=== PATIENT | male | born 1935 | race Caucasian/White ===

== ENCOUNTER 2016-10-27 17:59 | Inpatient (IN) | payer MEDICARE, OTHER ==
[~2016-10-27] VITALS: Ht 177.8 cm; Wt 72.5 kg
[2016-10-27 19:40] LABS: Albumin 3.3 g/dL (3.4-5.0); BUN/Creatinine Ratio 36.7; Calcium 8.6 mg/dL (8.5-10.1); Magnesium 2.6 mg/dL (1.6-2.6); Potassium 4.1 mmol/L (3.5-5.1)
[2016-10-27 19:43] LABS: Bilirubin, Total 1.5 mg/dL (0.2-1.0); Total Protein 6.4 g/dL (6.4-8.2)
[2016-10-27 19:54] LABS: Basophils # (auto) 0 uL; Basophils % (auto) 0.1 % (0.0-2.0); DEFINITIVE VIEW TRANSMISSION; Eosinophils # (auto) 0 uL; Eosinophils % (auto) 0.3 % (0.0-7.0); Hematocrit 48.4 % (41.0-53.0); Hemoglobin 15.8 g/dL (13.5-17.5); Lymphocytes # (auto) 0.8 uL; Lymphocytes % (auto) 6.2 % (10.0-50.0); Mean Corpuscular Hemoglobin 29.3 pg (28.0-32.0); Mean Corpuscular Hgb Conc. 32.6 g/dL (32.0-36.0); Mean Platelet Volume 8.1 fL (7.4-10.4); Monocytes # (auto) 2.4 uL; Monocytes % (auto) 17.9 % (0.0-12.0); Neutrophils # (auto) 10.3 uL; Neutrophils % (auto) 75.5 % (37.0-80.0); Platelet Count (auto) 505 10^3/uL (140-450); Red Cell Distribution Width 15.9 % (11.6-16.0); White Blood Cell 13.6 10^3/uL (4.4-10.8)
[2016-10-27] MEDS ORDERED: ALUM & MAG HYDROX-SIMETH LIQ(MAALOX) 30 ML PO ONE (22:15)
[2016-10-27] MEDS ORDERED: PIPERACILLIN-TAZOB 3.375GM 100 ML IV ONE ×2 (22:15→22:37)
[2016-10-27] MEDS ORDERED: LIDOCAINE VISCOUS 2% 15ML UD PO ONE (22:15)
[2016-10-27] MEDS ORDERED: DONNATAL 5ml ORAL Elix (BELLADONNA ALK-PHENOBARB) PO ONE (22:15)
[2016-10-27 22:25] LABS: Amylase 17 U/L (25-115)
[2016-10-28] VITALS (7 sets, daily range): BP systolic 128–180; BP diastolic 54–92
[2016-10-28] MEDS ORDERED: WARFARIN SODIUM 2 MG TAB PO ONE ×3 (00:45→06:15)
[2016-10-28] MEDS ORDERED: ONDANSETRON HCL 4 MG/2 ML VIAL IV PRN (00:45)
[2016-10-28] MEDS: SODIUM CHLORIDE 0.9% 1,000 ML IV SCH ×4 (02:30→21:43)
[2016-10-28] MEDS: PIPERACILLIN-TAZO 4.5GM 100 ML IV SCH ×3 (05:34→21:42)
[2016-10-28 06:36] LABS: Partial Thromboplastin Time 58.4 sec (22.64-33.71)
[2016-10-28 06:39] LABS: Prothrombin Time 68.1 sec (9.37-12.3)
[2016-10-28 06:41] LABS: INR 6.61 (0.9-1.15)
[2016-10-28 06:48] LABS: Albumin 2.7 g/dL (3.4-5.0); BUN/Creatinine Ratio 43.1; Bilirubin, Total 1.2 mg/dL (0.2-1.0); Calcium 8.2 mg/dL (8.5-10.1); Potassium 3.7 mmol/L (3.5-5.1); Total Protein 5.1 g/dL (6.4-8.2)
[2016-10-28] MEDS ORDERED: MEMA28CA OR (06:52)
[2016-10-28] MEDS ORDERED: WARF4TAB33 PO (06:52)
[2016-10-28] MEDS ORDERED: NEBI5TAB2 PO (06:52)
[2016-10-28] MEDS ORDERED: TEMA15CA PO (06:52)
[2016-10-28] MEDS: FAMOTIDINE 20 MG TAB PO SCH ×2 (09:37→21:43)
[2016-10-28] MEDS: MEMANTINE HCL 5 MG TAB PO SCH (09:37)
[2016-10-28] MEDS ORDERED: ENOXAPARIN SOD 30 MG/0.3 ML SYRINGE SC SCH (10:00)
[2016-10-28] MEDS ORDERED: BYSTOLIC 2.5 MG PO SCH (10:00)
[2016-10-28] MEDS ORDERED: ENOXAPARIN SOD 40 MG/0.4 ML SYRINGE SC SCH (10:00)
[2016-10-28] MEDS: LACTULOSE 20Gm/30ML SOLN PO PRN (12:01)
[2016-10-29 05:00] VITALS: BP 119/60
[2016-10-29 05:48] LABS: DEFINITIVE VIEW TRANSMISSION; Hematocrit 39.9 % (41.0-53.0); Hemoglobin 12.9 g/dL (13.5-17.5); Mean Corpuscular Hemoglobin 29.1 pg (28.0-32.0); Mean Corpuscular Hgb Conc. 32.4 g/dL (32.0-36.0); Mean Corpuscular Volume 89.9 fL (80.0-100.0); Mean Platelet Volume 8.1 fL (7.4-10.4); Platelet Count (auto) 275 10^3/uL (140-450); Red Cell Distribution Width 15.1 % (11.6-16.0); SUSPECT VIEW TRANSMISSION; White Blood Cell 8.3 10^3/uL (4.4-10.8)
[2016-10-29] MEDS: PIPERACILLIN-TAZO 4.5GM 100 ML IV SCH ×3 (06:02→21:18)
[2016-10-29 06:11] LABS: Partial Thromboplastin Time 63.4 sec (22.64-33.71)
[2016-10-29 06:26] LABS: Metamyelocytes % 0; Myelocytes % 0; Promyelocytes % 0; Reactive Lymphocytes 0
[2016-10-29 06:28] LABS: Albumin 2.4 g/dL (3.4-5.0); BUN/Creatinine Ratio 36.4; Bilirubin, Total 1.8 mg/dL (0.2-1.0); Calcium 8.2 mg/dL (8.5-10.1); Potassium 3.4 mmol/L (3.5-5.1); Total Protein 4.8 g/dL (6.4-8.2)
[2016-10-29 06:53] LABS: Prothrombin Time 47.6 sec (9.37-12.3)
[2016-10-29 06:56] LABS: INR 4.62 (0.9-1.15)
[2016-10-29] MEDS: SODIUM CHLORIDE 0.9% 1,000 ML IV SCH ×3 (08:43→23:00)
[2016-10-29 09:00] VITALS: BP 103/60
[2016-10-29] MEDS: FAMOTIDINE 20 MG TAB PO SCH ×2 (09:15→21:17)
[2016-10-29] MEDS: LACTULOSE 20Gm/30ML SOLN PO PRN (09:15)
[2016-10-29] MEDS: MEMANTINE HCL 5 MG TAB PO SCH (09:15)
[2016-10-29 09:21] LABS: Urine Bilirubin Negative (Negative); Urine Color Yellow (Yellow); Urine Glucose Normal (Normal); Urine Ketone Negative (Negative); Urine Mucus FEW (None Seen); Urine Nitrite Negative (Negative); Urine RBC 53 /hpf (0 - 3); Urine Urobilinogen Normal (Negative); Urine pH 5.5 (5.0-8.0)
[2016-10-29 09:42] LABS: Urine Blood 2+ /uL (Negative)
[2016-10-29 13:00] VITALS: BP 101/40
[2016-10-29 15:28] LABS: Platelet Estimate Adequate
[2016-10-29 17:00] VITALS: BP 110/65
[2016-10-29 21:33] VITALS: BP 122/75
[2016-10-30 04:50] VITALS: BP 103/62
[2016-10-30] MEDS: PIPERACILLIN-TAZO 4.5GM 100 ML IV SCH ×3 (06:09→22:00)
[2016-10-30 07:31] LABS: Partial Thromboplastin Time 49.8 sec (22.64-33.71)
[2016-10-30 07:32] LABS: Albumin 2.2 g/dL (3.4-5.0); BUN/Creatinine Ratio 25.9; Calcium 7.7 mg/dL (8.5-10.1); Potassium 3.7 mmol/L (3.5-5.1)
[2016-10-30 07:33] LABS: Hematocrit 39.5 % (41.0-53.0); Hemoglobin 12.8 g/dL (13.5-17.5); Mean Corpuscular Hemoglobin 29.4 pg (28.0-32.0); Mean Corpuscular Hgb Conc. 32.3 g/dL (32.0-36.0); Mean Corpuscular Volume 90.9 fL (80.0-100.0); Mean Platelet Volume 8.4 fL (7.4-10.4); Platelet Count (auto) 288 10^3/uL (140-450); Red Cell Distribution Width 14.9 % (11.6-16.0); White Blood Cell 5.7 10^3/uL (4.4-10.8)
[2016-10-30 07:36] LABS: INR 3.55 (0.9-1.15); Prothrombin Time 36.6 sec (9.37-12.3)
[2016-10-30 07:38] LABS: Metamyelocytes % 0; Myelocytes % 0; Promyelocytes % 0
[2016-10-30 08:15] LABS: Bilirubin, Total 1.4 mg/dL (0.2-1.0); Total Protein 4.9 g/dL (6.4-8.2)
[2016-10-30] MEDS: SODIUM CHLORIDE 0.9% 1,000 ML IV SCH ×2 (08:43→16:43)
[2016-10-30 09:00] VITALS: BP 101/70
[2016-10-30] MEDS: MEMANTINE HCL 5 MG TAB PO SCH (10:18)
[2016-10-30] MEDS: FAMOTIDINE 20 MG TAB PO SCH ×2 (10:18→22:00)
[2016-10-30 13:00] VITALS: BP 106/62
[2016-10-30 14:26] LABS: Reactive Lymphocytes 1
[2016-10-30 14:27] LABS: Platelet Clumps FEW; Platelet Estimate Adequate
[2016-10-30 17:00] VITALS: BP 98/62
[2016-10-31] MEDS: SODIUM CHLORIDE 0.9% 1,000 ML IV SCH ×3 (00:51→18:19)
[2016-10-31] MEDS: TEMAZEPAM 15 MG CAP PO PRN (03:09)
[2016-10-31 05:10] VITALS: BP 103/57
[2016-10-31] MEDS: PIPERACILLIN-TAZO 4.5GM 100 ML IV SCH ×3 (05:39→22:04)
[2016-10-31 06:13] LABS: Partial Thromboplastin Time 46.9 sec (22.64-33.71)
[2016-10-31 06:19] LABS: INR 2.67 (0.9-1.15); Prothrombin Time 27.5 sec (9.37-12.3)
[2016-10-31 09:00] VITALS: BP 120/71
[2016-10-31] MEDS: MEMANTINE HCL 5 MG TAB PO SCH (10:29)
[2016-10-31] MEDS: FAMOTIDINE 20 MG TAB PO SCH ×2 (10:29→22:04)
[2016-10-31] MEDS: MORPHINE SULF INJ 2 MG/ML SYRINGE 1ML IV PRN ×2 (10:35→18:14)
[2016-10-31 13:00] VITALS: BP 97/70
[2016-10-31 17:00] VITALS: BP 109/61
[2016-10-31] MEDS ORDERED: WARFARIN SODIUM 2 MG TAB PO ONE (17:00)
[2016-10-31] MEDS: DONNATAL 5ml ORAL Elix (BELLADONNA ALK-PHENOBARB) PO SCH (22:07)
[2016-11-01] MEDS: TEMAZEPAM 15 MG CAP PO PRN (00:33)
[2016-11-01] MEDS: SODIUM CHLORIDE 0.9% 1,000 ML IV SCH ×2 (00:43→03:43)
[2016-11-01] MEDS: DONNATAL 5ml ORAL Elix (BELLADONNA ALK-PHENOBARB) PO SCH ×3 (05:09→22:44)
[2016-11-01] MEDS: PIPERACILLIN-TAZO 4.5GM 100 ML IV SCH ×3 (05:09→22:44)
[2016-11-01 06:05] LABS: Partial Thromboplastin Time 43.8 sec (22.64-33.71)
[2016-11-01 06:06] LABS: INR 2.73 (0.9-1.15); Prothrombin Time 28.1 sec (9.37-12.3)
[2016-11-01 08:25] LABS: Hematocrit 34.5 % (41.0-53.0); Hemoglobin 11.3 g/dL (13.5-17.5); Mean Corpuscular Hemoglobin 29.8 pg (28.0-32.0); Mean Corpuscular Hgb Conc. 32.8 g/dL (32.0-36.0); Mean Corpuscular Volume 90.8 fL (80.0-100.0); Mean Platelet Volume 8.6 fL (7.4-10.4); Platelet Count (auto) 240 10^3/uL (140-450); Red Cell Distribution Width 14.6 % (11.6-16.0); SUSPECT VIEW TRANSMISSION; White Blood Cell 4.2 10^3/uL (4.4-10.8)
[2016-11-01 08:38] LABS: BUN/Creatinine Ratio 23.8; Calcium 7.5 mg/dL (8.5-10.1); Metamyelocytes % 0; Myelocytes % 0; Potassium 3.5 mmol/L (3.5-5.1); Promyelocytes % 0; Reactive Lymphocytes 0
[2016-11-01 09:00] VITALS: BP 107/64
[2016-11-01 09:06] LABS: Platelet Estimate Adequate; RBC Morphology Normal
[2016-11-01] MEDS: FAMOTIDINE 20 MG TAB PO SCH ×2 (10:52→22:44)
[2016-11-01] MEDS: MEMANTINE HCL 5 MG TAB PO SCH (10:52)
[2016-11-01 13:00] VITALS: BP 123/80
[2016-11-01 17:00] VITALS: BP 128/68
[2016-11-01] MEDS ORDERED: WARFARIN SODIUM 2 MG TAB PO ONE (17:00)
[2016-11-01 22:00] VITALS: BP 168/76
[2016-11-02] MEDS: SODIUM CHLORIDE 0.9% 1,000 ML IV SCH ×2 (00:48→08:43)
[2016-11-02] MEDS: DONNATAL 5ml ORAL Elix (BELLADONNA ALK-PHENOBARB) PO SCH ×2 (06:00→13:52)
[2016-11-02] MEDS ORDERED: IOHEXOL 300 MG/ML 100ML BOTTLE IJ ONE (07:23)
[2016-11-02] MEDS: PIPERACILLIN-TAZO 4.5GM 100 ML IV SCH (07:51)
[2016-11-02 09:00] VITALS: BP 130/60
[2016-11-02 10:02] LABS: INR 3.39 (0.9-1.15); Partial Thromboplastin Time 39.5 sec (22.64-33.71); Prothrombin Time 34.9 sec (9.37-12.3)
[2016-11-02 10:48] VITALS: BP 168/76
[2016-11-02] MEDS: FAMOTIDINE 20 MG TAB PO SCH (11:09)
[2016-11-02] MEDS: MEMANTINE HCL 5 MG TAB PO SCH (11:09)
[2016-11-02 13:00] VITALS: BP 109/72
[2016-11-04] MEDS ORDERED: PANT1INJ3 PO (07:01)
== END 2016-11-02 18:00 | disposition home or self-care (01) | DRG 391 ==
LOC: EDSEX 18:06 → ER 18:06 → EAST 18:07
PROVIDERS: ADMIT Family Medicine; ATTEND Internal Medicine
DX: K44.9 Diaphragmatic hernia without obstruction or gangrene (principal); E43 Unspecified severe protein-calorie malnutrition; J98.11 Atelectasis; R16.1 Splenomegaly, not elsewhere classified; I11.9 Hypertensive heart disease without heart failure; N40.0 Benign prostatic hyperplasia without lower urinary tract symptoms; I70.0 Atherosclerosis of aorta; M54.5 Low back pain; D72.829 Elevated white blood cell count, unspecified; F03.90 Unspecified dementia, unspecified severity, without behavioral disturbance, psychotic disturbance, mood disturbance, and anxiety; K59.00 Constipation, unspecified; M41.9 Scoliosis, unspecified; Z86.718 Personal history of other venous thrombosis and embolism; Z88.6 Allergy status to analgesic agent; Z88.2 Allergy status to sulfonamides; Z88.8 Allergy status to other drugs, medicaments and biological substances; Z68.22 Body mass index [BMI] 22.0-22.9, adult
CPT/HCPCS: 36415; 71010; 74176; 74178; 80048; 80053; 81001; 82150; 83690; 83735; 84484; 85007; 85025; 85027; 85049; 85610; 85730; 87040; 87086; 92610; 93005; 94761; 96365; 96366; J2543